=== PATIENT | female | born 1940 | race Caucasian/White ===

== ENCOUNTER 2017-09-19 22:34 | Emergency (ER) | payer OTHER ==
[~2017-09-19] VITALS: Ht 162.6 cm; Wt 61.7 kg
[~2017-09-19 22:34] MED LIST: CIPRO500 MG PO; LAC PO; ZESTRIL5 MG PO
[2017-09-19 22:46] VITALS: Ht 162.6 cm; Wt 61.7 kg
[2017-09-20 00:09] VITALS: BP 186/100
== END 2017-09-20 00:09 | disposition home or self-care (01) ==
LOC: ED 22:34
DX: S01.01XA Laceration without foreign body of scalp, initial encounter (principal); F03.90 Unspecified dementia, unspecified severity, without behavioral disturbance, psychotic disturbance, mood disturbance, and anxiety; W01.0XXA Fall on same level from slipping, tripping and stumbling without subsequent striking against object, initial encounter; Y93.89 Activity, other specified; Y92.89 Other specified places as the place of occurrence of the external cause; Y99.8 Other external cause status
CPT/HCPCS: 90715

== ENCOUNTER 2019-11-01 11:13 | Emergency (ER) | payer OTHER, MEDICAID ==
[~2019-11-01] VITALS: Ht 162.6 cm; Wt 53.5 kg
[2019-11-01 11:16] VITALS: Ht 162.6 cm; Wt 53.5 kg
[2019-11-01 13:25] VITALS: BP 132/84
== END 2019-11-01 13:25 | disposition home or self-care (01) ==
LOC: ED 11:13
DX: S52.121A Displaced fracture of head of right radius, initial encounter for closed fracture (principal); M25.511 Pain in right shoulder; M25.561 Pain in right knee; X50.9XXA Other and unspecified overexertion or strenuous movements or postures, initial encounter; Y93.89 Activity, other specified; Y92.89 Other specified places as the place of occurrence of the external cause; Y99.8 Other external cause status
CPT/HCPCS: Q0092